=== PATIENT | male | born 1940 | race Caucasian/White ===

== ENCOUNTER → 2024-05-26 10:01 | Outpatient (REF) | payer MEDICARE, OTHER, SELFPAY ==
[2024-05-26 12:02] LABS: Blood Urea Nitrogen 18 mg/dl (9-20)
== END ==
LOC: HWLAB 10:01
PROVIDERS: ATTENDING PHYSICIAN Ophthalmology; FAMILY PHYSICIAN Family Medicine
DX: H40.1132 Primary open-angle glaucoma, bilateral, moderate stage (principal); H02.413 Mechanical ptosis of bilateral eyelids
CPT/HCPCS: 36415; 82565; 84520; 84590

== ENCOUNTER → 2024-07-10 09:59 | Outpatient (REF) | payer MEDICARE, OTHER, SELFPAY ==
[2024-07-10 11:59] LABS: % Basophils 0.7 % (0-2); % Eosinophils 3.8 % (0-6); % Lymphocytes 21.6 % (20.5-51.1); % Monocytes 7.6 % (1.7-9.3); % Neutrophils 65.3 % (42.2-75.2); Absolute Basophils 0.1 10^3/uL (0-0.2); Absolute Eosinophils 0.3 10^3/uL (0-0.7); Absolute Immature Granulocytes 0.1 10^3/uL (0-0.05); Absolute Lymphocytes 1.5 10^3/uL (1.2-3.4); Absolute Monocytes 0.5 10^3/uL (0.1-0.6); Absolute Neutrophils 4.6 10^3/uL (1.4-6.5); Hematocrit 39.6 % (39.0-52.0); Mean Corp Hgb Conc. 32.8 g/dL (33.0-37.0); Mean Corpuscular Hgb 30.6 pg (27.0-31.0); Mean Corpuscular Volume 93.2 fL (80.0-94.0); Mean Platelet Volume 10.4 fL (7.4-10.4); Nucleated Red Blood Cells % 0 % (-); Platelet Count 243 10^3/uL (130-400); Red Blood Cell Count 4.25 10^6/uL (4.70-6.10); Red Cell Dist. Width 12.7 % (11.5-14.5); White Blood Cell Count 7.1 10^3/uL (4.8-10.8)
[2024-07-10 12:21] LABS: Blood Urea Nitrogen 24 mg/dl (9-20)
[2024-07-10 13:31] LABS: Vitamin B12 342 pg/ml (239-931)
[2024-07-11 20:21] LABS: Copper, Serum 122.6 ug/dL (70.0-140.0)
[2024-07-11 23:03] LABS: Angiotensin-1-converting Enzym 26 U/L (16-85)
[2024-07-12 09:55] LABS: Quantiferon Mitogen minus NIL 9.79 IU/mL; Quantiferon NIL 0.21 IU/mL; Quantiferon TB Gold Plus Negative (Negative)
== END ==
LOC: HWLAB 09:59
PROVIDERS: FAMILY PHYSICIAN Family Medicine; REFERRING PHYSICIAN Ophthalmology
DX: H47.093 Other disorders of optic nerve, not elsewhere classified, bilateral (principal); D51.9 Vitamin B12 deficiency anemia, unspecified
CPT/HCPCS: 36415; 82164; 82525; 82565; 82607; 82746; 83921; 84520; 84590; 85025; 86480; 86618; 86780

== ENCOUNTER 2024-12-03 15:48 | Emergency (ER) | payer MEDICARE, OTHER, SELFPAY ==
[2024-12-03] VITALS (7 sets, daily range): BP systolic 140–204; BP diastolic 66–96; PULSE 76–81; BMI 27.0
[2024-12-03 16:26] LABS: Hematocrit 40.8 % (39.0-52.0); Hemoglobin 13.6 g/dL (13.0-18.0); Mean Corp Hgb Conc. 33.3 g/dL (33.0-37.0); Mean Corpuscular Volume 90.9 fL (80.0-94.0); Nucleated Red Blood Cells % 0 % (-); Platelet Count 247 10^3/uL (130-400); Red Cell Dist. Width 12.9 % (11.5-14.5)
--- NOTE | 2024-12-03 16:27 | ED.GENMED ---
History of Present Illness
General
Chief Complaint: Dizziness
Source: patient
Exam Limitations: none
Time Seen by Provider: 12/03/24 16:11
History of Present Illness
History of Present Illness:
84yoM with a history of hypertension and glaucoma presenting via EMS for evaluation of dizziness. Patient had some dizziness this morning which worsened throughout the day. He was able to go to [employer]ikh[employer] and out to breakfast this morning without much
difficulty. Dizziness started to worsen around 2pm. He describes the dizziness as feeling off balance. Dizziness is mainly present on standing and he was unable to ambulate at home which prompted EMS call. He is currently feeling slightly
improved. He has had similar dizziness in the past but it has been much milder and usually passes after a few hours. He took his blood pressure at home due to his symptoms which was elevated with SBP in the 190s. He denies any headache, visual
changes, vomiting, ear pain, tinnitus, chest pain, shortness of breath. He takes 5mg amlodipine daily for his blood pressure.
Past History
Social History
Tobacco: Non-smoker
Living: with family
Phy Exam
General Physical Exam
General Presentation: well appearing and no apparent distress
General Skin: warm and dry
General Habitus: normal
General Mental: alert
ENT Exam
ENT Exam: normocephalic
Eye Exam
Eye Exam: PERRL, EOMI and conjunctiva normal
Cardiovascular Exam
Cardiovascular Exam: regular rate/rhythm
Pulmonary Exam
Pulmonary Exam: lungs clear, no respiratory distress, no rales, no crackles, no rhonchi and no wheezing
Neurological Exam
Neurological Exam: alert, CN II-XII intact, no motor deficits, speech normal and other (CN 2-12 intact. PERRL. EOMs intact without obvious nystagmus. 5/5 strength in all extremities. Normal finger to nose and heel to watson bilaterally. )
[place] Coma Scale
Eye Opening: Spontaneous
Verbal Response: Oriented
Motor Response: Obeys Commands
GCS Total Score: 15
Skin Exam
Skin Exam: normal color and warm/dry
Psychiatric Exam
Psychiatric Exam: normal mood/affect
Course
Orders/Labs/Results
Orders:
Orders
12/03/24 16:13
Electrocardiogram (*1) Stat
Reason for Study: Vertigo / Dizzy
12/03/24 16:14
EKG- Treatment ONCE
12/03/24 16:15
Complete Blood Count/With Diff Urgent
Comprehensive Metabolic Panel Urgent
Troponin I Urgent
12/03/24 16:26
CT Head W/o Iv Contrast Urgent
Comment:
Reason For Exam: dizziness
Cardiac Monitoring- Treatment ONCE
12/03/24 16:36
Orthostatic VS- Treatment ONCE
Abnormal Lab Results
12/03/24
16:15
RBC 4.49 L 10^6/uL
(4.70-6.10)
Abs Immat Gran (auto) 0.1 H 10^3/uL
(0-0.05)
Absolute Monos (auto) 0.7 H 10^3/uL
(0.1-0.6)
Immature Gran % 1.0 H %
(0-0.5)
BUN 22 H mg/dl
(9-20)
Glucose 102 H mg/dl
(70-99)
Albumin 5.2 H g/dl
(3.5-5.0)
12/03/24 16:15
12/03/24 16:15
Vital Signs
Initial and Last Documented VS:
Initial Vital Signs
Temp Pulse Resp BP Pulse Ox
98.4 F 82 20 203/76 97
12/03/24 15:59 12/03/24 15:59 12/03/24 15:59 12/03/24 15:59 12/03/24 15:59
Last Documented Vital Signs
Temp Pulse Resp BP Pulse Ox
98.4 F 72 23 140/93 97
12/03/24 15:59 12/03/24 18:33 12/03/24 18:33 12/03/24 19:26 12/03/24 16:29
MDM/Problems Addressed
Differential Diagnosis Includes:
84yoM here with dizziness that began earlier today. Described as feeling off balance. Not present at rest, only on standing. BP 203/76 on arrival. He is well appearing in no distress. No ataxia or focal neuro deficits on exam. Differential diagnosis
includes but is not limited to: BPPV, vestibular neuronitis, Meniere's, hypertensive urgency, less likely CVA as symptoms are only present with standing
Initial ED plan: Check cardiac labs, EKG, and CT head.
*Pulse Oximetry
SaO2: 97
Oxygen Mode of Delivery: Room air
Patient hypoxic: no (97%)
*EKG
Interpreted by ED Provider?: Yes
EKG Intrepretation Date: 12/03/24
Heart Rate: 83
Rate: normal
Rhythm: sinus
Interval: normal interval
QRS Pattern: normal QRS
Ischemia: non-specific ST changes
*Critical Care Note
Total Time (30-74mins, 75-104mins- exclusive of procedures): Not Applicable
Update Note
Update Note:
EKG shows normal sinus rhythm without ischemic changes and troponin within normal limits. Remainder of labs unremarkable. CT head negative for acute findings. Blood pressure improved to 140/93 without intervention. Patient is feeling
significantly improved. He was able to ambulate independently. He states he feels 95% better but still feels slightly off balance. Did offer admission for neurology evaluation although very low suspicion for CVA given vast improvement in
symptoms. Patient declines admission and is eager to go home. He was advised to follow-up closely with his PCP. Prescription given for outpatient vestibular therapy. Strict ED return precautions reviewed. Patient discharged in stable condition.
ED Attending Note
-
Portions of this chart may have been created with voice recognition software.� Occasional wrong word or��sound alike� substitutions may have occurred due to the inherent limitations of voice recognition software.
Discharge Plan
Departure
Patient Disposition: Home (Routine Discharge)
Date of Disposition: 12/03/24
Time of Disposition: 19:47
Patient with high blood pressure during this ER visit?: Yes
Discharge Problem:
Dizziness
Instructions: Dizziness
Referrals:
Herb Mejia, DO [Family Provider, Family Practice]
Activity Restrictions/Additional Instructions:
Please follow-up with your family doctor tomorrow. You should also call to make a follow-up appointment with vestibular therapy.
Return to the ER immediately with any new or worsening symptoms.
Interventions
Interventions:
*Risk Screen - Suicide Last Done: 12/03/24 15:59
*General Assessment Last Done: 12/03/24 15:59
*Neglect/Abuse Screening Last Done: 12/03/24 15:59
*ED- Fall Risk Assessment Last Done: 12/03/24 15:59
*ED COVID-19 Vaccine History Last Done: 12/03/24 15:59
*Nursing Disposition Last Done: 12/03/24 19:53
ED- Neurological Assessment Last Done: 12/03/24 17:15
ED Swallowing Screen Last Done: 12/03/24 17:13
Discharge Date and Time
Discharge Date/Time: 12/03/24 19:53
Print Language: SERBIAN
[2024-12-03 16:38] LABS: ALT (SGPT) 24 U/L (0-50); AST (SGOT) 30 U/L (17-59); Albumin 5.2 g/dl (3.5-5.0); Alkaline Phosphatase 56 U/L (38-126); Blood Urea Nitrogen 22 mg/dl (9-20); Calcium 9.5 mg/dl (8.4-10.2); Carbon Dioxide 26 mmol/L (22-30); Chloride 103 mmol/L (98-107); Estimated Creatinine Clearance 55 ml/min; Glucose 102 mg/dl (70-99); Potassium 4.7 mmol/L (3.5-5.1); Sodium 137 mmol/L (135-145); Total Protein 8.2 g/dl (6.3-8.2); eGFR > 60.00
[2024-12-03 16:49] LABS: Troponin I < 0.012 ng/ml
== END 2024-12-03 19:53 | disposition home or self-care (01) ==
LOC: EMR 15:48
PROVIDERS: Emergency Medicine; EMERGENCY PHYSICIAN Student in an Organized Health Care Education/Training Program; FAMILY PHYSICIAN Family Medicine
DX: R42 Dizziness and giddiness (principal); I10 Essential (primary) hypertension; Z79.899 Other long term (current) drug therapy
CPT/HCPCS: 99284; 70450; 80053; 84484; 85025; 93005

== ENCOUNTER → 2024-12-08 14:19 | Outpatient (REF) | payer MEDICARE, OTHER, SELFPAY | LOC: DHVS 14:19 | PROVIDERS: ATTENDING PHYSICIAN Family Medicine | DX: R42 Dizziness and giddiness (principal); I67.81 Acute cerebrovascular insufficiency | CPT/HCPCS: 93880 ==

== ENCOUNTER → 2025-01-20 09:09 | Outpatient (REF) | payer MEDICARE, OTHER, SELFPAY ==
[2025-01-20 13:03] LABS: Blood Urea Nitrogen 25 mg/dl (9-20); Calcium 9.4 mg/dl (8.4-10.2); Carbon Dioxide 28 mmol/L (22-30); Chloride 108 mmol/L (98-107); Glucose 97 mg/dl (70-99); Potassium 4.4 mmol/L (3.5-5.1); Sodium 142 mmol/L (135-145); eGFR > 60.00
== END ==
LOC: HWLAB 09:09
PROVIDERS: ATTENDING PHYSICIAN Surgery Vascular Surgery; FAMILY PHYSICIAN Family Medicine
DX: I65.23 Occlusion and stenosis of bilateral carotid arteries (principal)
CPT/HCPCS: 36415; 80048

== ENCOUNTER → 2025-01-22 07:57 | Outpatient (REF) | payer MEDICARE, OTHER, SELFPAY | LOC: RAD 07:57 | PROVIDERS: ATTENDING PHYSICIAN Surgery Vascular Surgery; FAMILY PHYSICIAN Family Medicine | DX: I65.23 Occlusion and stenosis of bilateral carotid arteries (principal) | CPT/HCPCS: 70496; 70498; Q9967 ==

== ENCOUNTER → 2025-02-03 09:25 | Outpatient (REF) | payer MEDICARE, OTHER, SELFPAY | LOC: RAD 09:25 | PROVIDERS: ATTENDING PHYSICIAN Surgery Vascular Surgery; FAMILY PHYSICIAN Family Medicine | DX: I71.40 Abdominal aortic aneurysm, without rupture, unspecified (principal) | CPT/HCPCS: 76770 ==

== ENCOUNTER → 2025-04-16 10:15 | Outpatient (REF) | payer MEDICARE, OTHER, SELFPAY ==
[2025-04-16 14:42] LABS: TSH 1.55 uIU/ml (0.47-4.68)
[2025-04-16 15:17] LABS: Folate 7.0 ng/ml (2.76-20); Vitamin B12 345 pg/ml (239-931)
== END ==
LOC: REG 10:15
PROVIDERS: ATTENDING PHYSICIAN Specialist; FAMILY PHYSICIAN Family Medicine
DX: G30.1 Alzheimer's disease with late onset (principal); E03.9 Hypothyroidism, unspecified; D51.8 Other vitamin B12 deficiency anemias
CPT/HCPCS: 36415; 82607; 82746; 84439; 84443